=== PATIENT | female | born 1995 | race Caucasian/White ===

== ENCOUNTER → 2018-09-13 | Outpatient (CLI) | payer OTHER ==
[2018-09-13 12:44] LABS: HEMATOCRIT 32.3 % (36.0-47.0); HEMOGLOBIN 10.5 g/dl (12.0-15.5); MEAN CORPUSCULAR HEMOGLOBIN 32.6 pg (27.0-33.0); MEAN CORPUSCULAR HGB CONC 32.5 g/dl (32.0-36.5); MEAN CORPUSCULAR VOLUME 100.3 fl (80.0-96.0); PLATELET COUNT, AUTOMATED 216 10^3/uL (150-450); RED BLOOD COUNT 3.22 10^6/uL (4.00-5.40)
== END ==
LOC: M LAB 11:13
PROVIDERS: ATTEND Nurse Practitioner Women's Health
DX: Z34.02 Encounter for supervision of normal first pregnancy, second trimester (principal); Z3A.00 Weeks of gestation of pregnancy not specified

== ENCOUNTER → 2018-11-12 | Outpatient (REF) | payer OTHER | LOC: M LAB REF 12:27 | PROVIDERS: ATTEND Nurse Practitioner Women's Health | DX: Z34.03 Encounter for supervision of normal first pregnancy, third trimester (principal) ==

== ENCOUNTER 2018-12-01 19:51 | Outpatient (CLI) | payer OTHER ==
[~2018-12-01] VITALS: Ht 152.4 cm; Wt 81.2 kg
[2018-12-01 20:47] VITALS: BP 114/62
[2018-12-02 01:28] VITALS: BP 127/79
--- NOTE | 2018-12-02 02:15 | NUR ---
L&D Triage Note: S: 23yo g1 at 39wks presents with diffuse itching x1 week. Denies rash or other symptoms. Reports active movement. No vaginal bleeding, LOF or ctx. O: vss, AF cat 1 tracing gen: well appearing, NAD skin: no rash or lesion A/P: 23yo G1 at 39wks with pruritus - will obtain LFTs and bile acid to r/o intrahepatic cholestasis of -labor precautions and FKC -f/u with primary securities settlement processor Elena Leger MD
[2018-12-02 02:32] LABS: ALBUMIN 2.6 GM/DL (3.2-5.2); ALT/SGPT 12 U/L (12-78); BILIRUBIN,DIRECT < 0.1 MG/DL (0.0-0.2); BILIRUBIN,TOTAL 0.2 MG/DL (0.2-1.0); TOTAL PROTEIN 6.7 GM/DL (6.4-8.2)
== END 2018-12-02 01:50 | disposition home or self-care (01) ==
LOC: M LDO 19:51
PROVIDERS: ATTEND Obstetrics & Gynecology
DX: O99.713 Diseases of the skin and subcutaneous tissue complicating pregnancy, third trimester (principal); L29.9 Pruritus, unspecified; Z3A.39 39 weeks gestation of pregnancy
CPT/HCPCS: 36415; 59025; 80076; 82239; G0378; G0463

== ENCOUNTER 2018-12-28 12:14 | Emergency (ER) | payer OTHER ==
[~2018-12-28] VITALS: Ht 152.4 cm; Wt 77.6 kg
[2018-12-28] MEDS ORDERED: VITA250T4 PO (12:22)
[2018-12-28] MEDS ORDERED: PREN29TA4 PO (12:22)
[2018-12-28] MEDS ORDERED: DOCU-129 PO (12:22)
[2018-12-28] MEDS ORDERED: FERR325T82 PO (12:22)
[2018-12-28 13:12] LABS: HEMATOCRIT 34.1 % (36.0-47.0); HEMOGLOBIN 10.8 g/dl (12.0-15.5); MEAN CORPUSCULAR HGB CONC 31.7 g/dl (32.0-36.5); PLATELET COUNT, AUTOMATED 380 10^3/uL (150-450); RED BLOOD COUNT 3.48 10^6/uL (4.00-5.40); WHITE BLOOD COUNT 9.7 10^3/uL (4.0-10.0)
[2018-12-28 13:35] LABS: BLOOD UREA NITROGEN 15 MG/DL (7-18); CALCIUM LEVEL 9.4 MG/DL (8.5-10.1); CARBON DIOXIDE LEVEL 26 MEQ/L (21-32); CHLORIDE LEVEL 107 MEQ/L (98-107); CREATININE FOR GFR 0.82 MG/DL (0.55-1.30); GLOMERULAR FILTRATION RATE > 60.0 (>60); GLUCOSE, FASTING 88 MG/DL (70-100); POTASSIUM SERUM 4.2 MEQ/L (3.5-5.1); SODIUM LEVEL 139 MEQ/L (136-145)
[2018-12-28] MEDS ORDERED: ISOVUE-370 76% 100ML VIAL (Q9967) As Ordered ONE (13:40)
[2018-12-28] MEDS: KETOROLAC 30 MG/ML VIAL (J1885) IV ONE ×2 (14:53→14:57)
[2018-12-28] MEDS ORDERED: KETOROLAC 60 MG/2 ML VIAL (J1885) IM ONE (15:00)
[2018-12-28 15:12] VITALS: BP 126/69
--- NOTE | 2018-12-28 15:25 | REP ---
REASON: Assess wound. COMPARISON: None. CONTRAST: 100 mL [id number]. The liver, gallbladder, spleen, pancreas, and adrenal glands are within normal limits. There are numerable focal high-density areas seen in each kidney, however, intravenous contrast was administered, and although these likely represent tiny nonobstructing nephroliths, contrast excretion, at least in part, could also be responsible for the finding. The kidneys are otherwise unremarkable. The abdominal aorta and para-aortic regions are within normal limits. The bowel loops and their mesenteries, although seen in a limited fashion due to the lack of oral bowel preparatory contrast administration, are within normal limits. There is no free fluid or free air in the abdomen. CT PELVIS: In the left anterior parasaggital abdominal wall skin, there is subtle focal induration and a tiny air density. The subcutaneous fat deep to this region is slightly infiltrated. There is no evidence of an abscess at this time. There is no pelvic mass or adenopathy. The uterus is enlarged, consistent with the recent state. There is no free fluid of any significance. There is a tiny amount of free pelvic fluid, likely physiologic. The pelvic bowel loops are unremarkable. Bone window technique throughout the exam shows the osseous structures to be within normal limits. IMPRESSION: 1. There are some subtle skin changes suspected in the left anterior low abdominal wall in the region of previous cicatrix. The finding is nonspecific. No discernable abscess is present at this time. 2. Probable bilateral nonobstructing nephroliths with limitation as described above. 3. Other findings as described above. Electronically Signed by Johnny Mayers DO 12/28/2018 03:37 P
== END 2018-12-28 15:37 | disposition home or self-care (01) ==
LOC: M ED 12:14
DX: O90.0 Disruption of cesarean delivery wound (principal); G89.18 Other acute postprocedural pain; R11.0 Nausea; Z87.442 Personal history of urinary calculi; Z87.440 Personal history of urinary (tract) infections; N73.9 Female pelvic inflammatory disease, unspecified; Z86.19 Personal history of other infectious and parasitic diseases; Z79.899 Other long term (current) drug therapy
CPT/HCPCS: 36415; 74177; 80048; 85027; 87070; 87075; 87076; 87077; 87186; 87205; 96372; 99284; J1885; Q9967

== ENCOUNTER → 2020-04-17 | Outpatient (CLI) | payer MEDICAID ==
[~2020-04-17] MED LIST: DOCU-129 PO; FERR325T82 PO; PREN29TA4 PO; VITA250T4 PO
[2020-04-17 16:48] LABS: ALBUMIN 3.6 GM/DL (3.2-5.2); ALT/SGPT 23 U/L (12-78); BILIRUBIN,TOTAL 0.3 MG/DL (0.2-1.0); BLOOD UREA NITROGEN 13 MG/DL (7-18); CARBON DIOXIDE LEVEL 26 MEQ/L (21-32); CHLORIDE LEVEL 106 MEQ/L (98-107); CHOLESTEROL LEVEL 203 MG/DL (<200); CHOLESTEROL RISK RATIO 2.671 (<5); CREATININE FOR GFR 0.73 MG/DL (0.55-1.30); FREE T4 2.29 NG/DL (0.76-1.46); GLOMERULAR FILTRATION RATE > 60.0 (>60); GLUCOSE, FASTING 80 MG/DL (70-100); HDL CHOLESTEROL 76 MG/DL (>40); LDL CHOLESTEROL 112 MG/DL (<100); NON-HDL-C 127 MG/DL; POTASSIUM SERUM 4.3 MEQ/L (3.5-5.1); SODIUM LEVEL 138 MEQ/L (136-145); TOTAL PROTEIN 7.5 GM/DL (6.4-8.2); TRIGLYCERIDES LEVEL 75 MG/DL (<150)
[2020-04-17 17:41] LABS: HEMOGLOBIN A1c 5.1 %
== END ==
LOC: M LAB 14:48
PROVIDERS: ATTEND Student in an Organized Health Care Education/Training Program
DX: R39.15 Urgency of urination (principal); Z68.41 Body mass index [BMI] 40.0-44.9, adult

== ENCOUNTER 2020-04-27 13:30 | Emergency (ER) | payer MEDICAID ==
[~2020-04-27] VITALS: Ht 152.4 cm; Wt 95.8 kg
[2020-04-27] MEDS ORDERED: LEXA1TAB PO (13:38)
--- NOTE | 2020-04-27 14:26 | REP ---
INDICATION: injury COMPARISON: None. TECHNIQUE: Four views. FINDINGS: There is no fracture or dislocation. Mineralization and joint spaces are normal. There are no calcifications or foreign bodies. IMPRESSION: Essentially negative right foot. <Electronically signed by Harrison Santos > 04/27/20 [id number]
[2020-04-27 15:00] VITALS: BP 127/81
== END 2020-04-27 15:00 | disposition home or self-care (01) ==
LOC: M ED 13:30
DX: S90.31XA Contusion of right foot, initial encounter (principal); W22.8XXA Striking against or struck by other objects, initial encounter; Y92.89 Other specified places as the place of occurrence of the external cause; F17.210 Nicotine dependence, cigarettes, uncomplicated

== ENCOUNTER → 2020-05-15 | Outpatient (CLI) | payer MEDICAID ==
[~2020-05-15] MED LIST changes: +LEXA1TAB PO
--- NOTE | 2020-05-15 13:32 | REP ---
INDICATION: HX OF KIDNEY STONES COMPARISON: 12/28/2018 TECHNIQUE: Axial noncontrast images from the lung bases to the pubic symphysis with coronal and sagittal reformations. This CT examination was performed using the following dose reduction techniques: Automated exposure control, adjustment of mA and/or kv according to the patient's size, and use of iterative reconstruction technique. FINDINGS: Lung bases are clear. Visualized heart and pericardium normal. Liver, spleen, pancreas, gallbladder, and bilateral adrenal glands are normal. Right kidney includes few nonobstructing calculi measuring up to 4 mm while the left kidney demonstrates few nonobstructing punctate calculi up to 2 mm. There is no evidence for perinephric stranding, hydroureteronephrosis or obstructing ureteral calculi. The enteric system is unremarkable and without obstruction or acute inflammatory process. Normal terminal ileum and appendix identified in the right lower quadrant. Pelvis demonstrates normal bladder and age-appropriate uterus/adnexa. No ascites. No free air. No adenopathy. No focal inflammatory stranding. Abdominal aorta without aneurysm. Musculoskeletal structures are intact and without acute osseous abnormality. IMPRESSION: Few bilateral (right greater than left) non-obstructing renal calculi. <Electronically signed by Tano Katz > 05/15/20 [id number]
== END ==
LOC: M RAD 12:57
PROVIDERS: ATTEND Student in an Organized Health Care Education/Training Program
DX: N20.0 Calculus of kidney (principal); Z87.442 Personal history of urinary calculi

== ENCOUNTER 2021-10-20 09:16 | Emergency (ER) | payer BC, MEDICAID, OTHER ==
[~2021-10-20] VITALS: Ht 152.4 cm; Wt 90.9 kg
[~2021-10-20 09:16] MED LIST changes: -DOCU-129 PO; +DOCU-153 PO
[2021-10-20 10:57] VITALS: BP 108/53
== END 2021-10-20 11:07 | disposition home or self-care (01) ==
LOC: M ED 09:16
DX: S93.402A Sprain of unspecified ligament of left ankle, initial encounter (principal); X50.0XXA Overexertion from strenuous movement or load, initial encounter; Y92.009 Unspecified place in unspecified non-institutional (private) residence as the place of occurrence of the external cause; Z79.899 Other long term (current) drug therapy

== ENCOUNTER 2021-12-20 19:44 | Emergency (ER) | payer OTHER ==
[~2021-12-20] VITALS: Ht 152.4 cm; Wt 96.4 kg
[2021-12-20] MEDS ORDERED: FLUO40CA PO (21:12)
[2021-12-21 00:25] VITALS: BP 122/70
== END 2021-12-21 04:24 | disposition left against medical advice (07) ==
LOC: M ED 19:44
DX: Z53.21 Procedure and treatment not carried out due to patient leaving prior to being seen by health care provider (principal)

== ENCOUNTER → 2022-01-02 | Outpatient (CLI) | payer OTHER ==
[~2022-01-02] MED LIST changes: +FLUO40CA PO; +WELLTAB38 PO
== END ==
LOC: M LABSMTC 10:18
PROVIDERS: ATTEND Anesthesiology
DX: Z01.818 Encounter for other preprocedural examination (principal); Z11.52 Encounter for screening for COVID-19

== ENCOUNTER 2022-01-07 10:11 | Day surgery (SDC) | payer OTHER ==
[~2022-01-07] VITALS: Ht 152.4 cm; Wt 94.7 kg
[2022-01-07] MEDS ORDERED: LR 1,000 ML IV SCH ×3 (10:25→14:40)
[2022-01-07] MEDS ORDERED: OXYMETAZOLINE 0.05% NASAL SPRAY (AFRIN) As Ordered ONE (12:51)
[2022-01-07] MEDS ORDERED: BUPIVACAINE/EPIN 0.5% 30 ML VIAL As Ordered ONE (12:52)
[2022-01-07] MEDS ORDERED: LIDOCAINE 2% 100MG/5ML SDV (FOR ANES.) As Ordered ONE (12:56)
[2022-01-07] MEDS ORDERED: ONDANSETRON 4MG 2ML VIAL As Ordered ONE (12:56)
[2022-01-07] MEDS ORDERED: propofoL 200 MG/20 ML VIAL As Ordered ONE (12:56)
[2022-01-07] MEDS ORDERED: dexameTHASONE 4 MG/ML 1ML VIAL (J1100 PER 1MG) As Ordered ONE (12:56)
[2022-01-07] MEDS ORDERED: fentaNYL 100 MCG/2 ML INJECTION As Ordered ONE (12:56)
[2022-01-07] MEDS ORDERED: MIDAZOLAM INJ 2MG/2ML VIAL (J2250 PER 1MG) As Ordered ONE (12:56)
[2022-01-07] MEDS ORDERED: ROCURONIUM BROMIDE 50 MG/5 ML VIAL As Ordered ONE (13:09)
[2022-01-07] MEDS ORDERED: SUGAMMADEX SODIUM 500 MG/5 ML VIAL (BRIDION) As Ordered ONE (13:09)
[2022-01-07] MEDS ORDERED: KETOROLAC 60MG 2ML VIAL As Ordered ONE (13:46)
[2022-01-07] MEDS ORDERED: HYDROMORPHONE HCL 0.5 MG/ 0.5 ML SYRINGE (J1170 PER 1) IV PRN (13:50)
[2022-01-07] MEDS ORDERED: MEPERIDINE INJ 25 MG/ML VIAL (J2175) IV PRN (13:50)
[2022-01-07] MEDS ORDERED: ONDANSETRON 4MG 2ML VIAL IV PRN ×2 (13:50→14:40)
[2022-01-07] MEDS ORDERED: PERCOCET 5MG/325MG TAB PO PRN (13:50)
[2022-01-07] MEDS ORDERED: fentaNYL 100 MCG/2 ML INJECTION IV PRN (13:50)
[2022-01-07] MEDS ORDERED: HYDROcodone/APAP LIQUID 7.5-325MG 15ML UDC (LORTAB ELIXIR) PO PRN (14:40)
[2022-01-07 14:48] VITALS: BP 116/56
== END 2022-01-07 15:37 | disposition home or self-care (01) ==
LOC: M SDC 10:11
PROVIDERS: ATTEND Otolaryngology
DX: J35.01 Chronic tonsillitis (principal); F41.9 Anxiety disorder, unspecified; F32.A Depression, unspecified; Z79.899 Other long term (current) drug therapy
CPT/HCPCS: 42826; 81025; 88302; J1100; J1885; J2250; J2405; J3010

== ENCOUNTER 2024-12-18 20:48 | Emergency (ER) | payer OTHER ==
[~2024-12-18] VITALS: Ht 152.4 cm; Wt 104.0 kg
[~2024-12-18 20:48] MED LIST changes: -DOCU-153 PO; +STOO100C30 PO; +VITA250T27 PO; -VITA250T4 PO
[2024-12-18 21:38] LABS: BASO # 0.1 10^3/uL (0.0-0.2); BASO % 0.5 % (0.0-1.0); EOS # 0.2 10^3/uL (0.0-0.5); EOS % 1.3 % (0.0-3.0); LYMPH # 4.9 10^3/uL (1.5-5.0); LYMPH % 34.6 % (24.0-44.0); MONO # 0.7 10^3/uL (0.0-0.8); MONO % 5.1 % (2.0-8.0); NEUTROPHILS # 8.2 10^3/uL (1.5-8.5); NEUTROPHILS % 58.3 % (36.0-66.0); PLATELET COUNT, AUTOMATED 340 10^3/uL (150-450)
[2024-12-18 21:52] LABS: ALT/SGPT 24 U/L (7.0-40); AST/SGOT 17 U/L (<34); CALCIUM LEVEL 9.0 MG/DL (8.5-10.1); CARBON DIOXIDE LEVEL 22 MMOL/L (20-31); CHLORIDE LEVEL 108 MMOL/L (98-107); CREATININE FOR GFR 0.85 MG/DL (0.55-1.30); GLOMERULAR FILTRATION RATE > 90.0 (>60); POTASSIUM SERUM 4.2 MMOL/L (3.5-5.1); SODIUM LEVEL 143 MMOL/L (136-145)
[2024-12-18 22:15] LABS: HCG, SERUM QUALITATIVE NEGATIVE (NEGATIVE)
[2024-12-18] MEDS: MORPHINE 4 MG/ML 1 ML VIAL IV ONE (22:28)
[2024-12-18] MEDS: ONDANSETRON 4MG 2ML VIAL IV ONE (22:28)
[2024-12-18] MEDS: NS (Normal Saline) 0.9% 1,000 ML IV ONE (22:28)
[2024-12-18] MEDS: MORPHINE 4 MG/ML 1 ML VIAL IV PRN (23:25)
[2024-12-18] MEDS ORDERED: ISOVUE-370 76% 100 ML VIAL As Ordered ONE (23:29)
[2024-12-19] MEDS: KETOROLAC 30 MG/ML 1 ML VIAL IV ONE (00:07)
[2024-12-19 01:45] LABS: KETONE, URINE AUTO RFX NEGATIVE (NEGATIVE); LEUKOCYTE ESTERASE UR AUTO RFX NEGATIVE (NEGATIVE); MUCUS, URINE RFX SMALL (NEGATIVE); NITRITE, URINE AUTO RFX NEGATIVE (NEGATIVE); RBC, URINE AUTO RFX 69 /HPF (0-3); SQUAM EPITHELIAL CELL UR AURFX 3 /HPF (0-6); WBC, URINE AUTO RFX 3 /HPF (0-3)
[2024-12-19] MEDS ORDERED: ONDA-282 PO (02:23)
[2024-12-19] MEDS ORDERED: KETO-204 PO (02:23)
[2024-12-19] MEDS ORDERED: TAMS-18 PO (02:23)
[2024-12-19] MEDS: TAMSULOSIN 0.4 MG CAP PO ONE (02:25)
[2024-12-19 02:33] VITALS: BP 116/56; TEMP 97.2; O2SAT 97
== END 2024-12-19 02:36 | disposition home or self-care (01) ==
LOC: M ED 20:48
DX: N13.2 Hydronephrosis with renal and ureteral calculous obstruction (principal); F41.9 Anxiety disorder, unspecified; F32.9 Major depressive disorder, single episode, unspecified; Z87.442 Personal history of urinary calculi; Z79.899 Other long term (current) drug therapy; Z79.83 Long term (current) use of bisphosphonates
CPT/HCPCS: 71045; 74177; 80048; 80076; 81001; 82150; 83690; 84703; 85025; 93005; 96361; 96374; 96375; 99284; J1885; J2405; Q9967

== ENCOUNTER 2024-12-29 06:10 | Day surgery (SDC) | payer OTHER ==
[~2024-12-29] VITALS: Ht 152.4 cm; Wt 105.6 kg
[~2024-12-29 06:10] MED LIST changes: +KETO-204 PO; +METF500T13 PO; +ONDA-282 PO; +TAMS-18 PO; +TAMS1CAP17 PO; +VENL75CA47 PO
[2024-12-29] MEDS ORDERED: LR 1,000 ML IV SCH ×2 (06:40→08:35)
[2024-12-29] MEDS ORDERED: KETO-204 PO (06:49)
[2024-12-29] MEDS ORDERED: LIDOCAINE 2% 100 MG/5 ML SDV (FOR ANES.) As Ordered ONE (06:50)
[2024-12-29] MEDS ORDERED: ONDANSETRON 4MG 2ML VIAL As Ordered ONE (06:50)
[2024-12-29] MEDS ORDERED: dexAMETHasone 4 MG/ML 1 ML VIAL As Ordered ONE (06:50)
[2024-12-29] MEDS ORDERED: MIDAZOLAM INJ 2 MG/2 ML VIAL As Ordered ONE (06:55)
[2024-12-29] MEDS: ceFAZolin SOD 2 GM IV ONCE IV ONE (07:40)
[2024-12-29] MEDS ORDERED: ACETAMINOPHEN 1000MG/100ML IV BAG As Ordered ONE (07:40)
[2024-12-29] MEDS: ISOVUE-300 61% 100 ML VIAL As Ordered ONE (08:15)
[2024-12-29] MEDS ORDERED: HYDROMORPHONE HCL 0.5 MG/0.5 ML SYRINGE IV PRN (08:35)
[2024-12-29] MEDS ORDERED: OXYB5TAB14 PO (08:45)
[2024-12-29] MEDS ORDERED: PERCOCET 5MG/325MG TAB PO PRN (08:50)
[2024-12-29 09:37] VITALS: BP 125/63; TEMP 97.2; O2SAT 100
== END 2024-12-29 09:39 | disposition home or self-care (01) ==
LOC: M SDC 06:10
PROVIDERS: ATTEND Urology
DX: N13.2 Hydronephrosis with renal and ureteral calculous obstruction (principal); F17.290 Nicotine dependence, other tobacco product, uncomplicated; Z79.899 Other long term (current) drug therapy
CPT/HCPCS: 52356; 74420; 81025; 82365; C2617; J0131; J0690; J1100; J2250; J2405; J3010; Q9967

== ENCOUNTER 2025-01-18 02:47 | Emergency (ER) | payer OTHER ==
[~2025-01-18] VITALS: Ht 152.4 cm; Wt 104.5 kg
[~2025-01-18 02:47] MED LIST changes: +OXYB5TAB14 PO
[2025-01-18 04:09] LABS: KETONE, URINE AUTO RFX NEGATIVE (NEGATIVE); NITRITE, URINE AUTO RFX NEGATIVE (NEGATIVE); RBC, URINE AUTO RFX TNTC /HPF (0-3); SQUAM EPITHELIAL CELL UR AURFX 3 /HPF (0-6)
[2025-01-18] MEDS: KETOROLAC 30 MG/ML 1 ML VIAL IV ONE (04:23)
[2025-01-18] MEDS: ONDANSETRON 4MG 2ML VIAL IV ONE (04:23)
[2025-01-18] MEDS: NS (Normal Saline) 0.9% 1,000 ML IV ONE (04:24)
[2025-01-18 04:34] LABS: LEUKOCYTE ESTERASE UR AUTO RFX 1+ (NEGATIVE); WBC, URINE AUTO RFX 14 /HPF (0-3)
[2025-01-18 04:35] LABS: BASO # 0.1 10^3/uL (0.0-0.2); BASO % 0.8 % (0.0-1.0); EOS # 0.3 10^3/uL (0.0-0.5); EOS % 2.5 % (0.0-3.0); LYMPH # 2.4 10^3/uL (1.5-5.0); LYMPH % 23.4 % (24.0-44.0); MONO # 0.6 10^3/uL (0.0-0.8); MONO % 6.0 % (2.0-8.0); NEUTROPHILS # 6.9 10^3/uL (1.5-8.5); NEUTROPHILS % 67.2 % (36.0-66.0); PLATELET COUNT, AUTOMATED 316 10^3/uL (150-450)
[2025-01-18 05:04] LABS: ALT/SGPT 17 U/L (7.0-40); AST/SGOT 29 U/L (<34); CALCIUM LEVEL 9.3 MG/DL (8.5-10.1); CARBON DIOXIDE LEVEL 28 MMOL/L (20-31); CHLORIDE LEVEL 107 MMOL/L (98-107); CREATININE FOR GFR 0.79 MG/DL (0.55-1.30); GLOMERULAR FILTRATION RATE > 90.0 (>60); POTASSIUM SERUM 5.7 MMOL/L (3.5-5.1); SODIUM LEVEL 144 MMOL/L (136-145)
[2025-01-18 05:51] VITALS: BP 98/55; TEMP 97.9; O2SAT 98
== END 2025-01-18 05:55 | disposition home or self-care (01) ==
LOC: M ED 02:47
DX: R10.9 Unspecified abdominal pain (principal); R11.2 Nausea with vomiting, unspecified; N13.30 Unspecified hydronephrosis; N20.0 Calculus of kidney; F32.A Depression, unspecified; F41.9 Anxiety disorder, unspecified; Z87.442 Personal history of urinary calculi; Z79.899 Other long term (current) drug therapy
CPT/HCPCS: 74176; 80048; 80076; 81001; 85025; 87086; 93041; 96361; 96374; 99284; J1885; J2405

== ENCOUNTER 2025-04-08 05:44 | Emergency (ER) | payer OTHER ==
[~2025-04-08] VITALS: Ht 152.4 cm; Wt 111.4 kg
[2025-04-08 06:17] LABS: BASO # 0.1 10^3/uL (0.0-0.2); BASO % 0.6 % (0.0-1.0); EOS # 0.1 10^3/uL (0.0-0.5); EOS % 1.0 % (0.0-3.0); LYMPH # 2.6 10^3/uL (1.5-5.0); LYMPH % 22.4 % (24.0-44.0); MONO # 0.6 10^3/uL (0.0-0.8); MONO % 5.0 % (2.0-8.0); NEUTROPHILS # 8.1 10^3/uL (1.5-8.5); NEUTROPHILS % 70.6 % (36.0-66.0); PLATELET COUNT, AUTOMATED 343 10^3/uL (150-450)
[2025-04-08] MEDS: KETOROLAC 30 MG/ML 1 ML VIAL IV ONE (06:26)
[2025-04-08] MEDS: ONDANSETRON 4MG/2ML VIAL IV ONE (06:26)
[2025-04-08 06:45] LABS: ALT/SGPT 22 U/L (7.0-40); AST/SGOT 19 U/L (<34); CALCIUM LEVEL 8.5 MG/DL (8.5-10.1); CARBON DIOXIDE LEVEL 23 MMOL/L (20-31); CHLORIDE LEVEL 109 MMOL/L (98-107); CREATININE FOR GFR 0.75 MG/DL (0.55-1.30); GLOMERULAR FILTRATION RATE > 90.0 (>60); POTASSIUM SERUM 4.7 MMOL/L (3.5-5.1); SODIUM LEVEL 145 MMOL/L (136-145)
[2025-04-08 06:46] LABS: HCG, SERUM QUALITATIVE NEGATIVE (NEGATIVE)
[2025-04-08] MEDS: NS (Normal Saline) 0.9% 1,000 ML IV ONE (06:56)
[2025-04-08 07:11] LABS: CK-MB VALUE MASS < 1.0 NG/ML (<3.6)
[2025-04-08 07:14] LABS: CPK CREATINE PHOSPHOKINASE 83 U/L (34-145)
[2025-04-08] MEDS ORDERED: ISOVUE-370 76% 100 ML VIAL As Ordered ONE (07:45)
[2025-04-08] MEDS: MORPHINE 4 MG/ML 1 ML VIAL IV PRN (08:19)
[2025-04-08] MEDS ORDERED: HYDROMORPHONE HCL 0.5 MG/0.5 ML SYRINGE IV ONE (09:25)
[2025-04-08 09:28] LABS: KETONE, URINE AUTO RFX NEGATIVE (NEGATIVE); LEUKOCYTE ESTERASE UR AUTO RFX NEGATIVE (NEGATIVE); MUCUS, URINE RFX SMALL (NEGATIVE); NITRITE, URINE AUTO RFX NEGATIVE (NEGATIVE); RBC, URINE AUTO RFX 9 /HPF (0-3); SQUAM EPITHELIAL CELL UR AURFX 4 /HPF (0-6); WBC, URINE AUTO RFX 1 /HPF (0-3)
[2025-04-08] MEDS: TAMSULOSIN 0.4 MG CAP PO ONE (09:55)
[2025-04-08] MEDS ORDERED: TAMS1CAP17 PO (11:27)
[2025-04-08] MEDS ORDERED: KETO-204 PO (11:27)
[2025-04-08] MEDS ORDERED: ONDA-282 PO (11:27)
[2025-04-08 11:52] VITALS: BP 121/81; TEMP 96.9; O2SAT 96
== END 2025-04-08 12:11 | disposition home or self-care (01) ==
LOC: M ED 08:20
DX: N13.2 Hydronephrosis with renal and ureteral calculous obstruction (principal); K76.0 Fatty (change of) liver, not elsewhere classified; F41.9 Anxiety disorder, unspecified; F32.A Depression, unspecified; F12.10 Cannabis abuse, uncomplicated; Z87.442 Personal history of urinary calculi; Z79.899 Other long term (current) drug therapy
CPT/HCPCS: 71046; 74177; 76705; 80048; 80076; 81001; 82550; 82553; 83690; 83880; 84484; 84703; 85025; 87086; 93005; 93041; 96361; 96374; 96375; 96376; 99285; J1885; J2405; Q9967

== ENCOUNTER 2025-04-28 11:37 | Day surgery (SDC) | payer OTHER ==
[~2025-04-28] VITALS: Ht 152.4 cm; Wt 111.9 kg
[~2025-04-28 11:37] MED LIST changes: +BACI1TAB20 PO; +SEMAGLUTIDE SC
[2025-04-28] MEDS ORDERED: LIDOCAINE 2% 100 MG/5 ML SDV (FOR ANES.) As Ordered ONE (12:00)
[2025-04-28] MEDS ORDERED: ONDANSETRON 4MG/2ML VIAL As Ordered ONE (12:01)
[2025-04-28] MEDS ORDERED: dexAMETHasone 4 MG/ML 1 ML VIAL As Ordered ONE (12:01)
[2025-04-28] MEDS ORDERED: MIDAZOLAM INJ 2 MG/2 ML VIAL As Ordered ONE (12:37)
[2025-04-28] MEDS ORDERED: OXYC1TAB23 PO (12:53)
[2025-04-28] MEDS: ceFAZolin SOD 2 GM IV ONCE IV ONE (13:00)
[2025-04-28] MEDS ORDERED: ACETAMINOPHEN 1000MG/100ML IV BAG As Ordered ONE (13:08)
[2025-04-28] MEDS: ISOVUE-300 61% 100 ML VIAL As Ordered ONE (13:11)
[2025-04-28] MEDS ORDERED: HYDROMORPHONE HCL 0.5 MG/0.5 ML SYRINGE IV PRN (13:25)
[2025-04-28] MEDS ORDERED: LR 1,000 ML IV SCH (13:25)
[2025-04-28] MEDS ORDERED: ONDANSETRON 4MG/2ML VIAL IV PRN (13:25)
[2025-04-28 14:20] VITALS: BP 110/67; TEMP 97.4; O2SAT 94
== END 2025-04-28 14:20 | disposition home or self-care (01) ==
LOC: M SDC 11:37
PROVIDERS: ATTEND Urology
DX: N20.2 Calculus of kidney with calculus of ureter (principal); F12.10 Cannabis abuse, uncomplicated; K76.0 Fatty (change of) liver, not elsewhere classified; F41.9 Anxiety disorder, unspecified; F32.A Depression, unspecified; Z79.899 Other long term (current) drug therapy
CPT/HCPCS: 52332; 52352; 74420; 81025; 82365; C2617; J0131; J0688; J1100; J2250; J2405; J3010; Q9967